=== PATIENT | male | born 1970 | race Caucasian/White ===

== ENCOUNTER 2018-04-15 16:51 | Emergency (ER) | payer SELFPAY ==
[~2018-04-15] VITALS: Ht 165.1 cm; Wt 95.3 kg
[2018-04-15 16:57] VITALS: BP 162/115; Ht 165.1 cm; Wt 95.3 kg
== END 2018-04-15 18:31 | disposition home or self-care (01) ==
LOC: ED 16:51
DX: R51 Headache (principal); G51.0 Bell's palsy; I10 Essential (primary) hypertension; F32.9 Major depressive disorder, single episode, unspecified; Z98.890 Other specified postprocedural states
CPT/HCPCS: J1885; J8597